=== PATIENT | female | born 2000 | race Caucasian/White ===

== ENCOUNTER 2022-11-16 15:07 | Inpatient (IN) | payer OTHER ==
[~2022-11-16] VITALS: Ht 170.2 cm; Wt 61.3 kg
[2022-11-16] VITALS (11 sets, daily range): BP systolic 99–129; BP diastolic 58–77
[2022-11-16] MEDS ORDERED: PRENTAB9 PO (16:38)
[2022-11-16] MEDS ORDERED: IRON65TA2 PO (16:38)
[2022-11-16] MEDS ORDERED: CALCTAB89 PO (16:38)
[2022-11-16] MEDS ORDERED: LACTATED RINGER'S 1000 ML IV STA (17:39)
[2022-11-16] MEDS ORDERED: PENICILLIN G POTASSIUM 5 MU IV 5 MU in D5W MINI-BAG PLUS 100 ML IV STA (17:39)
[2022-11-16] MEDS ORDERED: OXYTOCIN DRIP 30 UNITS in IV 1 EA IV SCH (17:40)
[2022-11-16] MEDS ORDERED: CARBOPROST TROMETHAMINE 250 MCG/ML AMP IM PRN (17:40)
[2022-11-16] MEDS ORDERED: LIDOCAINE 1% MDV 20ML VIAL INFIL PRN (17:40)
[2022-11-16] MEDS ORDERED: BETAMETHASONE SOLUSPAN 6MG/ML 5ML VIAL IM SCH (17:40)
[2022-11-16] MEDS ORDERED: METHYLERGONOVINE MALEATE 0.2 MG/ML VIAL (J2210) IM PRN (17:40)
[2022-11-16] MEDS ORDERED: OXYTOCIN DRIP 30 UNITS in IV 1 EA IV PRN ×6 (17:40)
[2022-11-16] MEDS ORDERED: TRANEXAMIC ACID INJection 1,000 MG in NS 100 ML IV PRN (17:40)
[2022-11-16] MEDS ORDERED: OXYTOCIN INJ 10UNITS/ML 1ML VIAL IM PRN (17:40)
[2022-11-16] MEDS ORDERED: OXYTOCIN INJ 10UNITS/ML 1ML VIAL IV PRN (17:40)
[2022-11-16] MEDS ORDERED: LR 1,000 ML IV SCH (17:40)
[2022-11-16 18:08] LABS: HEMATOCRIT 34.6 % (36.0-47.0); HEMOGLOBIN 11.6 g/dl (12.0-15.5); MEAN CORPUSCULAR HEMOGLOBIN 30.5 pg (27.0-33.0); MEAN CORPUSCULAR HGB CONC 33.5 g/dl (32.0-36.5); MEAN CORPUSCULAR VOLUME 91.1 fl (80.0-96.0); PLATELET COUNT, AUTOMATED 183 10^3/uL (150-450); WHITE BLOOD COUNT 11.8 10^3/uL (4.0-10.0)
[2022-11-16 18:35] LABS: CORD GAS ABE A -10.4; CORD GAS ABE V -8.7; CORD GAS HCO3 A 17.9 MEQ/L; CORD GAS HCO3 V 17.6 MEQ/L; CORD GAS O2 SAT A 87.3 %; CORD GAS O2 SAT V 75.3 %; CORD GAS PCO2 V 39.5 mmHg; CORD GAS PH A 7.189 UNITS; CORD GAS PH V 7.267 UNITS; CORD GAS PO2 A 51.4 mmHg; CORD GAS PO2 V 34.5 mmHg; CORD GAS SBC A 16.2 MEQ/L; CORD GAS SBC V 17.1 MEQ/L; CORD GAS TCO2 A 19.4 MEQ/L; CORD GAS TCO2 V 18.8 MEQ/L
[2022-11-16] MEDS ORDERED: MOM 30ML SUSPENSION UDC PO PRN (18:50)
[2022-11-16] MEDS ORDERED: IBUPROFEN 800 MG TAB PO PRN (18:50)
[2022-11-16] MEDS ORDERED: DOCUSATE SODIUM 100MG CAPSULE PO PRN (18:50)
[2022-11-16] MEDS ORDERED: DIBUCAINE 1% OINTMENT 30GM TOP PRN (18:50)
[2022-11-16] MEDS ORDERED: ANUSOL HC CREAM 30GM TOP PRN (18:50)
[2022-11-16] MEDS ORDERED: PEN G POT 3,000,000 UNIT/50 ML 3,000,000 UNIT in IV 1 EA IV SCH (22:17)
[2022-11-17 05:55] VITALS: BP 91/56
[2022-11-17] MEDS: PRENATAL VITAMINS CHEWABLE TABLET PO SCH (08:24)
[2022-11-17 18:00] VITALS: BP 104/64
[2022-11-18 06:15] VITALS: BP 100/56
[2022-11-18] MEDS: PRENATAL VITAMINS CHEWABLE TABLET PO SCH (09:33)
[2022-11-18 18:00] VITALS: BP 108/60
[2022-11-18] MEDS: ACETAMINOPHEN 500 MG TAB PO PRN (19:45)
[2022-11-19 06:00] VITALS: BP 108/53
[2022-11-19] MEDS: PRENATAL VITAMINS CHEWABLE TABLET PO SCH (11:28)
[2022-11-19] MEDS: ACETAMINOPHEN 500 MG TAB PO PRN (11:30)
== END 2022-11-19 16:47 | disposition home or self-care (01) | DRG 807 ==
LOC: M LDO 15:07 → M LDI 15:42 → M OBS 21:13
PROVIDERS: ADMIT Registered Nurse; ATTEND Registered Nurse
PROC: 10E0XZZ Delivery of Products of Conception, External Approach (ICD-10-PCS; principal; 2022-11-16)
PROC: 0HQ9XZZ Repair Perineum Skin, External Approach (ICD-10-PCS; 2022-11-16)
DX: O60.14X0 Preterm labor third trimester with preterm delivery third trimester, not applicable or unspecified (principal); Z37.0 Single live birth; Z3A.36 36 weeks gestation of pregnancy; O70.0 First degree perineal laceration during delivery; O36.5930 Maternal care for other known or suspected poor fetal growth, third trimester, not applicable or unspecified

== ENCOUNTER → 2022-11-24 | Outpatient (CLI) | payer OTHER ==
[~2022-11-24] MED LIST: CALCTAB89 PO; IRON65TA2 PO; PRENTAB9 PO
== END ==
LOC: M WHC 14:42 → EDUNIT# 15:00
PROVIDERS: ATTEND Family Medicine
DX: N63.10 Unspecified lump in the right breast, unspecified quadrant (principal)